=== PATIENT | female | born 1990 | race Two or more races ===

== ENCOUNTER 2020-08-10 10:22 | Day surgery (SDC) | payer OTHER | END 2020-08-10 20:05 | disposition home or self-care (01) | LOC: CIR.AMB 10:22 | PROVIDERS: ATTEND Specialist | DX: N93.8 Other specified abnormal uterine and vaginal bleeding (principal); Z30.432 Encounter for removal of intrauterine contraceptive device; Z20.822 Contact with and (suspected) exposure to COVID-19 ==